=== PATIENT | female | born 1995 | race African-American/Black ===

== ENCOUNTER 2024-07-31 11:01 | Emergency (ER) | payer OTHER, SELFPAY ==
--- NOTE | ~2024-07-31 | US_ITS ---
EXAMINATION: US OB <=14 wk fetus w TV INDICATION: early preg, cramping TECHNIQUE: Sonography of the pelvis was performed by transabdominal and transvaginal techniques. COMPARISON: None. RESULT: Uterus: 8.4 x 3.8 x 4.6 cm. Anteverted. Homogenous myometrium. Intrauterine gestational sac: Not seen. Right ovary: Not visualized cm. 5.8 cm right adnexal mass, isoechoic/slightly hyperechoic to uterine parenchyma, with heterogeneous echotexture. Focal vascular flow noted anteriorly, no definite circum ferential flow, possibly mild internal color Doppler flow. Left ovary: 3.6 x 2.2 x 1.8 cm. Vascular flow is present. No adnexal mass. Pelvis free fluid: Moderate volume free pelvic fluid, with scattered debris IMPRESSION: of unknown location. 5.8 cm right adnexal mass, may represent ovarian or other soft tissue mass, torsed ovary, or less lik mariella an exophytic fibroid or blood clot. Ectopic is not excluded. Moderate free pelvic fluid with debris. Reviewed, dictated and finalized at location K. TIVE PRINTER OPERATOR IMPRESSION: of unknown location. 5.8 cm right adnexal mass, may represent ovarian or other soft tissue mass, tor sed ovary, or less likely an exophytic fibroid or blood clot. Ectopic is not excluded. Moderate free pelvic fluid with debris.
[2024-07-31 11:05] VITALS: BP 120/89; PULSE 77; RESP 16; TEMP 36.6; O2SAT 100
--- NOTE | 2024-07-31 11:45 | ED_ITS ---
HPI - General Chief complaint: JOB COACH/JOB DEVELOPER Stated complaint: verify Time Seen by Provider: 07/31/24 11:10 History of Present Illness HPI Narrative: 28-year-old female presenting with abdominal cramping. States that her last period was about a month ago. She went to a different hospital today and was told that she was they did not have ultrasound capabilities so she was advised to come here. States that she has been having this cramping for a couple of weeks. No vaginal bleeding or discharge. No vomiting or diarrhea. Related Data Allergies Allergy/AdvReac Type Severity Reaction Status Date / Time No Known Allergies Allergy Verified 07/31/24 11:12 Review of Systems Review of Systems: All systems reviewed & are unremarkable except as noted in HPI and below Exam Narrative: GENERAL: Nontoxic, no acute distress, pleasant cooperative HEAD: Normocephalic, atraumatic. EYES: PERRLA and EOMI. ENT: Nares clear, no rhinorrhea or epistaxis. Mucous membranes moist. NECK: Supple. CHEST: No respiratory distress. HEART: Regular rate and rhythm ABDOMEN: Soft, + tender in lower abdomen without guarding or rebound PELVIC: dark red blood in vaginal vault, os appears to be slightly open, no clots EXTREMITIES: Normal range of motion. SKIN: Warm, dry, no rash. NEURO: Alert and oriented x3. PSYCH: Normal mood and affect. Course Vital Signs Vital signs: Vital Signs Temperature 97.9 F 07/31/24 11:05 Pulse Rate 77 07/31/24 11:05 Respiratory Rate 16 07/31/24 11:05 Blood Pressure 120/89 07/31/24 11:05 Pulse Oximetry 100 07/31/24 11:05 Oxygen Delivery Room Air 07/31/24 11:05 Temperature 98.2 F 07/31/24 17:51 Pulse Rate 67 07/31/24 17:51 Respiratory Rate 16 07/31/24 17:51 Blood Pressure 104/66 07/31/24 17:51 Pulse Oximetry 100 07/31/24 17:51 Oxygen Delivery Room Air 07/31/24 11:05 MDM - OB/Uterine Contractions MDM Narrative Medical decision making narrative: 28-year-old female presenting with pelvic cramping in the setting of early . Vitals are stable. Exam remarkable for the above. Blood work hemoglobin of 11.8. Beta hCG is only 500. Ultrasound shows of unknown location. 5.8 cm right adnexal mass, may represent ovarian or other soft tissue mass, torsed ovary, or less likely an exophytic fibroid or blood clot. Ectopic is not excluded. Moderate free pelvic fluid with debris. Patient received morphine and then IV Toradol and states that she has had a significant improvement in her pain following the Toradol. I suspect this represents a miscarriage as her last period was last month, her beta-hCGs minimally elevated, and her cervical os appears to be a bit open. Discussed the case with OBGYN who agrees with letting her go home with plans for a repeat beta hCG on Friday any follow-up appointment in their clinic on Friday. Very strict return precautions were given regarding worsening of symptoms and we discussed the possibility of an ectopic with the imaging findings. Patient is agreeable with this plan and feels comfortable going home. Will send in for ibuprofen for pain control. Discharged in stable condition. Medical Records Attestation: I reviewed the patient's medical records. Lab Data Attestation: I reviewed the patient's lab results. 07/31/24 12:01 07/31/24 12:01 Labs: Lab Results 07/31/24 07/31/24 Range/Units 12:01 12:08 WBC 8.1 (4.5-10.0) K/mm3 RBC 3.89 L (4.2-5.4) M/mm3 Hgb 11.8 L (12.0-15.0) g/dL Hct 33.6 L (37.0-47.0) % MCV 86.4 (80-100) fl MCH 30.3 (26-34) pg MCHC 35.1 (32-36) g/dl RDW 13.0 (11.5-14.5) % Plt Count 168 (150-375) k/mm3 MPV 12.4 H (7.4-10.4) fl Immature Gran % (Auto) 0.2 (0-0.5) % Neut % (Auto) 82.9 H (45.5-73.1) % Lymph % (Auto) 10.5 L (18.3-44.2) % Rhea % (Auto) 5.9 (2.6-8.5) % Eos % (Auto) 0.1 (0-4.4) % Baso % (Auto) 0.4 (0.2-1.2) % Lymph # (Auto) 0.85 L (0.9-3.2) K/mm3 Rhea # (Auto) 0.5 (0.1-0.6) K/mm3 Eos # (Auto) 0.0 (0-0.3) K/mm3 Baso # (Auto) 0.0 (0.0-0.1) K/mm3 Abs Immat Gran (auto) 0.02 (0.00-0.031) K/mm3 Absolute Neuts (auto) 6.7 (1.3-6.7) K/mm3 Absolute Nucleated RBC 0.000 (0.0-0.012) K/mm3 Nucleated RBC % 0.0 (0.0-0.2) % Sodium 135 L (137-145) mmol/L Potassium 4.4 (3.4-5.0) mmol/L Chloride 106 (98-107) mmol/L Carbon Dioxide 24 (22-30) mmol/L Anion Gap 5 (4-12) mmol/L BUN 5 L (7-17) mg/dL Creatinine 0.60 L (0.7-1.0) mg/dL Estim Creat Clear Calc 94 ml/min Estimated GFR > 60 (59 - ) Glucose 100 (65-110) mg/dL Calcium 9.0 (8.4-10.2) mg/dL Total Bilirubin 1.8 H (0.2-1.3) mg/dL AST 19 (14-36) U/L ALT 12 (6-35) U/L Alkaline Phosphatase 65 (38-126) U/L Total Protein 7.0 (6.3-8.2) g/dL Albumin 4.1 (3.5-5.1) g/dL Lipase 34 (23-300) U/L Beta HCG, Quant 522.06 mIU/ML Urine Color Red H (Yellow) Urine Appearance Cloudy H (Clear) Urine pH 5.0 (5.0-9.0) Ur Specific [place] 1.017 (1.001-1.035) Urine Protein 2+ H (Negative) mg/dL Urine Glucose (UA) Negative (Negative) mg/dL Urine Ketones 3+ H (Negative) mg/dL Ur Blood (Man) 3+ H (Negative) Urine Nitrate Negative (Negative) Urine Bilirubin 1+ H (Negative) Urine Urobilinogen 0.2 (<2.0) mg/dL Add Ur Microanalysis Reviewed Leukocyte Esterase Rfl 2+ H (Negative) NICO/UL Urine RBC >100 H (0-2) /hpf Urine WBC 51-100 H (0-3) /hpf Ur Squamous Epith Cells Moderate (Few) /hpf Urine Bacteria 4+ H /hpf Urine Casts 0-2 Imaging Data Radiologist's impression: ITS Impressions Obstetrics Ultrasound 07/31/24 14:28 IMPRESSION: of unknown location. 5.8 cm right adnexal mass, may represent ovarian or other soft tissue mass, torsed ovary, or less likely an exophytic fibroid or blood clot. Ectopic is not excluded. Moderate free pelvic fluid with debris. Critical Care Time Critical Care Time Critical Care Time: No Discharge Plan Discharge Clinical Impression: Vaginal bleeding affecting early Patient Disposition: Home, Self-Care Condition: Stable Instructions: Antibiotic Form, Miscarriage (ED) Additional Instructions: The workup today shows an elevation in your hormone that is consistent with an early . Her ultrasound does not show a definitive in your uterus. We suspect that you are experiencing an early miscarriage but an ectopic (a in a place other than the uterus) is still a possibility at this point. It is very important that you complete the blood work as ordered on Friday and follow-up with OBGYN at the number below. If your symptoms worsen or other concerning symptoms arise, please return to the ER. Prescriptions: New ibuprofen 800 mg tablet 800 mg PO TID PRN (Reason: pain) Qty: 30 0RF Other Ambulatory Orders: Beta HCG Quantitative (Routine) Timeframe: [id number] Facility: [facility] - Location: [facility] Laboratory Ordered By: Isabel Lepe Follow-up/Referrals: Martin Brandt MD [Physician] -
[2024-07-31 12:06] LABS: Basophils Percent Auto 0.4 % (0.2-1.2); Eosinophils Percent Auto 0.1 % (0-4.4); Hematocrit 33.6 % (37.0-47.0); Hemoglobin 11.8 g/dL (12.0-15.0); Immature Granulocyte Absolute 0.02 K/mm3 (0.00-0.031); Immature Granulocyte Percent A 0.2 % (0-0.5); Lymphocytes Absolute Auto 0.85 K/mm3 (0.9-3.2); Lymphocytes Percent Auto 10.5 % (18.3-44.2); Mean Corpuscular HGB Conc 35.1 g/dl (32-36); Mean Corpuscular Hemoglobin 30.3 pg (26-34); Mean Corpuscular Volume 86.4 fl (80-100); Mean Platelet Volume 12.4 fl (7.4-10.4); Monocytes Absolute Auto 0.5 K/mm3 (0.1-0.6); Monocytes Percent Auto 5.9 % (2.6-8.5); Neutrophils Absolute Auto 6.7 K/mm3 (1.3-6.7); Neutrophils Percent Auto 82.9 % (45.5-73.1); Platelet Count Result 168 k/mm3 (150-375); Red Blood Count 3.89 M/mm3 (4.2-5.4); White Blood Count 8.1 K/mm3 (4.5-10.0)
[2024-07-31] MEDS: MORPHINE SULFATE (*CRX) 4 MG/ML INJ IV PUSH (12:25)
[2024-07-31 12:26] LABS: Bacteria Urine 4+ /hpf; Need Manual Microscopic Reviewed; Non Pathogenic Casts 0-2; RBC Urine >100 /hpf (0-2); Squamous Epithelial Cell Urine Moderate /hpf (Few); WBC Urine 51-100 /hpf (0-3)
--- NOTE | 2024-07-31 12:26 | PC.NURSE ---
RN verified Morphine order with Dr. Lepe concerning positive test. Per appropriate & safe to give
[2024-07-31 12:29] VITALS: BP 118/81; PULSE 64; RESP 16; O2SAT 100
[2024-07-31 12:30] LABS: Add Urine Microscopic? YES; Bilirubin Urine 1+ (Negative); Blood Urine 3+ (Negative); Color Urine Red (Yellow); Glucose Urine UA Negative (Negative); Ketones Urine 3+ mg/dL (Negative); Leukocyte Esterase Ur 2+ LEU/UL (Negative); Nitrate Urine Negative (Negative); Protein Urine 2+ mg/dL (Negative); Specific Grav Ur 1.017 (1.001-1.035); Urobilinogen Urine 0.2 mg/dL (<2.0)
[2024-07-31 12:30] LABS: Alanine Aminotransferase 12 U/L (6-35); Albumin Level 4.1 g/dL (3.5-5.1); Alkaline Phosphatase 65 U/L (38-126); Anion Gap 5 mmol/L (4-12); Aspartate Amino Transferase 19 U/L (14-36); Bilirubin,Total 1.8 mg/dL (0.2-1.3); Blood Urea Nitrogen 5 mg/dL (7-17); Carbon Dioxide 24 mmol/L (22-30); Chloride 106 mmol/L (98-107); Estimated CRCL calculation 94 ml/min; Estimated Glomerular Filt Rate > 60; Glucose 100 mg/dL (65-110); Lipase 34 U/L (23-300); Potassium 4.4 mmol/L (3.4-5.0); Sodium 135 mmol/L (137-145)
[2024-07-31 12:33] LABS: Appearance Urine Cloudy (Clear)
[2024-07-31 12:48] LABS: Beta HCG Quantitative 522.06 mIU/ML
[2024-07-31 15:30] VITALS: BP 118/81; PULSE 68; RESP 16; TEMP 36.7; O2SAT 100
--- NOTE | 2024-07-31 16:39 | PC.NURSE ---
Pt asleep with reg resp. Waiting for for pelvic exam
[2024-07-31 16:50] VITALS: BP 116/75; PULSE 70; RESP 16; O2SAT 100
--- NOTE | 2024-07-31 17:31 | PC.NURSE ---
Upon entering pt room, RN noted pt & S/O in bed together. Instructed S/O to please sit in chair next to pt. S/O complied
[2024-07-31] MEDS: KETOROLAC 15 MG/ML VIAL (*BKC) IV PUSH (17:49)
[2024-07-31 17:51] VITALS: BP 104/66; PULSE 67; RESP 16; TEMP 36.8; O2SAT 100
--- NOTE | 2024-07-31 18:27 | PC.NURSE ---
7705: RN assisted Dr. Lepe with pelvic exam. Small to moderate amount of bright red blood. Pt tolerated well
[2024-08-02 10:03] LABS: BEDSIDEPREGUCG Positive (Negative)
== END 2024-07-31 19:28 | disposition home or self-care (01) ==
PROVIDERS: Emergency Provider Emergency Medicine
DX: O20.9 Hemorrhage in early pregnancy, unspecified (principal); Z3A.01 Less than 8 weeks gestation of pregnancy
CPT/HCPCS: 36415; 76801; 76817; 80053; 81001; 81025; 83690; 84702; 85025; 86850; 86900; 86901; 96374; 96375; 99284; J1885; J2270